=== PATIENT | male | born 1940 | race Caucasian/White ===

== ENCOUNTER 2022-03-15 14:00 | Emergency (ER) | payer BC, OTHER ==
[~2022-03-15] VITALS: Ht 185.4 cm; Wt 88.0 kg
[2022-03-15 14:00] VITALS: BP_SYST 150
[~2022-03-15 14:00] MED LIST: LOVA40TA75 PO; NEBI5TAB3 PO
--- NOTE | 2022-03-15 14:10 | NUR ---
DR. CELESTE AT BEDSIDE TO ASSESS PT. FOREHEAD WOUND CLEASED WITH N/S AND PATTED DRY.
--- NOTE | 2022-03-15 14:10 | NUR ---
RECEIVED PT FROM LORA MONROY. PT HAD FALL WHILE MAKING A TURN, CAUSING INCREASED DIZZINESS. PT DENIES N/V. RESP E/U. ON R/A. VSS. BS 145. PT DENIES PAIN. AT BEDSIDE, SIDERAILS UP X2.
--- NOTE | 2022-03-15 14:17 | NUR ---
8 STICHES PLACED TO FOREHEAD, BACITRACIN APPLIED, COVERED WITH ABDAPTIC AND KERLIX GAUZE. PT DENIES PAIN. TAKEN FOR CT. SCAN.
--- NOTE | 2022-03-15 14:34 | NUR ---
DR. NOWAK AT BEDSIDE TO PERFORM SUTURE PLACEMENT.
--- NOTE | 2022-03-15 15:13 | NUR ---
PT HEAD COVERED WITH ABDAPTIC AND KERLIX.
[2022-03-15] MEDS ORDERED: BACITRACIN 1 GM OINT TP ONE (15:15)
--- NOTE | 2022-03-15 16:20 | NUR ---
Patient given written and verbal discharge instructions and verbalizes understanding. ER MD discussed with patient the results and treatment provided. Patient in stable condition. ID arm band removed. Patient educated on pain management and to follow up with PMD. Pain Scale 0/10. Opportunity for questions provided and answered. Medication side effect fact sheet provided.
[2022-03-15 18:17] VITALS: BP_SYST 148
== END 2022-03-15 16:25 | disposition home or self-care (01) ==
LOC: SED 14:00
DX: S01.81XA Laceration without foreign body of other part of head, initial encounter (principal); R42 Dizziness and giddiness; I10 Essential (primary) hypertension; E11.9 Type 2 diabetes mellitus without complications; Z88.8 Allergy status to other drugs, medicaments and biological substances; W18.30XA Fall on same level, unspecified, initial encounter; Y93.89 Activity, other specified; Y92.89 Other specified places as the place of occurrence of the external cause; Y99.8 Other external cause status
CPT/HCPCS: 70450-TC; 76376; 82962; 93005; 99284